=== PATIENT | female | born 2000 | race Caucasian/White ===

== ENCOUNTER 2024-06-01 14:50 | Outpatient (CLI) | payer BC | END 2024-06-01 14:51 | disposition home or self-care (01) | LOC: BICRAD 14:50 | PROVIDERS: ATTEND Internal Medicine Gastroenterology | DX: K59.09 Other constipation (principal); F41.9 Anxiety disorder, unspecified; L70.9 Acne, unspecified | CPT/HCPCS: 74019 ==